=== PATIENT | male | born 1960 | race Caucasian/White ===

== ENCOUNTER 2020-12-02 10:54 | Emergency (ER) | payer BC ==
[~2020-12-02] VITALS: Ht 177.8 cm; Wt 76.8 kg
[~2020-12-02 10:54] MED LIST: NO HOME MEDICATIONS
[2020-12-02 11:06] VITALS: TEMP 98.5
[2020-12-02 11:15] LABS: BASO % 0.5 % (0.0-2.0); EOS # 0.1 (0.0-0.7); EOS % 1.1 % (0-4.0); GRAN # 2.9 (1.4-6.5); GRAN % 51.2 % (42.2-75.2); HEMATOCRIT 45.4 % (42.0-52.0); HEMOGLOBIN 15.1 g/dl (13.5-18.0); LYMPH # 2.1 (1.2-3.4); LYMPH % 37.1 % (20.0-51.0); MEAN CELL VOLUME 86 fl (80.0-100.0); MEAN CORPUSCULAR HEMOGLOBIN 28 pg (27.0-31.0); MEAN CORPUSCULAR HGB CONC 33 g/dl (33.0-37.0); MEAN PLATELET VOLUME 10.4 fl (7.4-10.4); MONO # 0.6 (0.1-0.6); MONO % 9.9 % (1.7-9.3); PLATELET COUNT 270 K/mm3 (130-400); RED BLOOD COUNT 5.31 M/mm3 (4.20-5.60); REDCELL DISTRIBUTION WIDTH-CV 12.7 % (11.5-14.5)
[2020-12-02 11:25] LABS: ALANINE AMINOTRANSFERASE 39 U/L (4-49); ALBUMIN 4.4 gm/dL (3.5-5.0); ALKALINE PHOSPHATASE 57 U/L (50-136); ANION GAP 7 mmol/L (7-16); AST,SGOT 33 U/L (15-37); BILIRUBIN,TOTAL 0.4 mg/dL (0.0-1.0); BLOOD UREA NITROGEN 19 mg/dL (9-20); CALCIUM 9.2 mg/dL (8.4-10.2); CARBON DIOXIDE 30 mmol/L (22-30); CHLORIDE 103 mmol/L (98-107); CREATININE, serum 0.98 (0.66-1.25); GLUCOSE 88 mg/dL (74-106); LIPASE 228 U/L (23-300); POTASSIUM 3.8 mmol/L (3.4-5.0); SODIUM 140 mmol/L (137-145); TOTAL PROTEIN 7.4 gm/dL (6.4-8.2)
[2020-12-02 11:29] LABS: INR 1.1 (0.8-3.0); PROTHROMBIN TIME 12.6 SECONDS (9.7-12.8)
[2020-12-02 11:31] LABS: PARTIAL THROMBOPLASTIN TIME 29.2 SECONDS (26.0-37.0)
[2020-12-02 11:41] LABS: TROPONIN-I < 0.012 ng/mL (0.000-0.035)
[2020-12-02] MEDS ORDERED: TYLENOL 325MG325 MG PO (14:03)
[2020-12-02] MEDS ORDERED: ROBAXIN 50500 MG/TAB PO (14:04)
[2020-12-02 14:18] VITALS: BP 115/80; PULSE 61
== END 2020-12-02 14:20 | disposition home or self-care (01) ==
LOC: COL.ER 10:54
PROVIDERS: Emergency Medicine
DX: R07.89 Other chest pain (principal); R06.02 Shortness of breath; R11.2 Nausea with vomiting, unspecified
CPT/HCPCS: J1885; J2060; J2270; J2405

== ENCOUNTER → 2020-12-29 | Outpatient (CLI) | payer BC ==
[~2020-12-29] MED LIST changes: +ROBAXIN 50500 MG/TAB PO; +TYLENOL 325MG325 MG PO
== END ==
LOC: COL.RAD 10:23
DX: D68.51 Activated protein C resistance (principal); I77.810 Thoracic aortic ectasia
CPT/HCPCS: Q9967